=== PATIENT | male | born 1970 | race Caucasian/White ===

== ENCOUNTER 2024-11-27 12:05 | Inpatient (IN) ==
--- NOTE | 2024-11-27 12:16 | Emergency Department Note ---
Impression & Plan NSTEMI (non-ST elevated myocardial infarction), Chest pain at rest, Elevated troponin ED Provider Note NAME: PELON ACEVEDO AGE: 53 SEX: M : 1970 ARRIVES VIA: Walk-In INFORMANT: Patient, Friend at bedside ED PROVIDER(S): Jerry Steen MD CHIEF COMPLAINT: Chest pain MEDICAL DECISION MAKING: Patient presents due to concern for chest pains. No active chest pain currently. IV was established and blood work is obtained. Patient's blood work shows a normal white count H&H and platelet count. Kidney function is unremarkable. Patient's EKG does not show evidence of obvious ischemia. Troponin is greater than 200. Given the patient's prior symptoms and lack of active chest pain the patient was ordered aspirin and heparin drip. I did speak with the on-call hospitalist service and the patient was admitted to the medicine service. Patient was reassessed several times and the patient never developed any chest pain during my evaluations. Critical Care: I have personally spent 47 minutes of critical care time in direct management of this patient. This includes bedside care, interpretation of diagnostic studies, and testing, discussion with consultants, patient, and family members, and other require inpatient management activities. This 47 minutes is in excess of all separately billable procedures. Discussion w/ other healthcare providers: Dr. Shannon Young hospitalist service Prior /Outside records reviewed: none Differential diagnosis: Cardiac ischemia, aortic dissection, pulmonary embolism, pneumothorax, pneumonia, pericarditis, myocarditis, GERD, cholecystitis, pancreatitis, musculoskeletal, as well as other pathologies were considered. Diagnostics, as interpreted by me: ECG: Sinus tachycardia, rate of 129, normal intervals, normal axis no obvious STEMI. Cardiac monitoring: An order was placed for continuous cardiac monitoring. The monitor shows a rate of 105 with sinus rhythm. Patient was placed on pulse oximetry Medical decision rules: Heart score Imaging studies: I informally interpreted the patient's chest x-ray does not show obvious pneumonia or pneumothorax with formal report to follow. HPI: Patient presents due to concern for chest pains. The patient states that this occurred around 930 this morning lasted for a total duration of 1 hour. The patient states that this began happening while drinking coffee this morning. The patient was at rest. Patient states that when he walked around it did not worsen his pain. Patient is felt as though centralized and sharp and did have bilateral shoulder pain. Patient did feel little clammy. Mild nausea associated. No vomiting. Patient denies any prior history of heart or lung disease. Patient reports that he has no significant family history and siblings or parents with heart attack or stroke before the age 65. No cough or fever. Patient denies any leg swelling or calf pain. No recent surgeries procedures or hospitalizations and no recent long car plane travel. Patient did initially think that this was indigestion but felt worse. The patient did take some Tums and had improvement in symptoms. Patient states that he is chest pain-free currently. PAST MEDICAL HISTORY: See Below PAST SURGICAL HISTORY: See Below SOCIAL HISTORY: See Below HOME MEDICATIONS: See Below ALLERGIES: See Below VITALS: See Below PHYSICAL EXAMINATION: GENERAL: NAD, non-toxic. EYE EXAM: Normal conjunctiva. PERRL, no anisocoria and EOM's grossly intact w/o pain. OROPHARYNX: Moist mucus membranes, grossly normal dentition. NECK: Trachea midline, no stridor. Supple, no nuchal rigidity, no adenopathy, non-tender. No signs of meningismus. FROM of the neck with good chin to chest and neck extension. LUNGS: Clear to auscultation. Normal chest wall mechanics. HEART: Tachycardic and regular, no MRG. ABDOMEN: Abdomen soft, non-tender, no masses, no rebound or guarding. BACK: No CVA TTP. SKIN: No rashes and no bruising. UPPER EXTREMITIES: Upper extremities are grossly normal. LOWER EXTREMITIES: Grossly normal, no edema. Negative Homans' sign bilaterally. NEURO EXAM: A&O x3, cranial nerves II-XII grossly intact, normal speech, moves all 4 extremities. 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 Beliefs That Will Affect Care: None Current Living Situation: Alone Other Information That Helps Us Care for You: No Feels Safe at Home: Yes Safety Concerns: Feels Safe At This Time Assistive Devices: None Allergies Allergies Allergy/AdvReac Type Severity Reaction Status Date / Time No Known Allergies Allergy Unverified 11/27/24 13:21 Home Meds Home Medications Medication Instructions Recorded Confirmed No Known Home Medications 11/27/24 11/27/24 Results & Data (ED) Vital Signs Vital Signs - 24 hr 11/27/24 12:10 Temperature 36.7 C Temperature Source Temporal Artery Scan Pulse Rate 117 H Pulse Strength Normal Respiratory Rate 19 Respiratory Effort / Characteristics Non-Labored Spontaneous Respiratory Depth Normal Respiratory Pattern Regular Blood Pressure 150/104 H Blood Pressure Mean 119 Blood Pressure Position Sitting Pulse Oximetry 97 Oxygen Delivery Method Room Air Sepsis Recent Fever Within 48 Hours No Sepsis New/Unexplained Change in Mental Status No Sepsis Action Taken by Nursing No Action Required Home Medications Current Medication List: was personally reviewed by me Laboratory Data Attestation: I reviewed the patient's lab results. 11/29/24 05:59 11/29/24 05:59 Lab Results 11/27/24 11/27/24 Range/Units 12:17 14:08 WBC 8.71 (4.8-10.8) K/ul RBC 5.13 (4.70-6.10) M/uL Hgb 15.8 (14.0-18.0) g/dl Hct 45.7 (42.0-52.0) % MCV 89.1 (80.0-100.0) fL MCH 30.8 (25.0-34.0) pg MCHC 34.6 (32.0-36.0) g/dL RDW Std Deviation 38.4 (36.4-46.3) fL RDW Coeff of Mitesh 11.8 (11.5-14.5) % Plt Count 229 (130-400) K/uL MPV 11.1 (9.4-12.4) fL Immature Gran % (Auto) 0.2 % Neut % (Auto) 79.8 % Lymph % (Auto) 13.7 % Burnett % (Auto) 5.3 % Eos % (Auto) 0.5 % Baso % (Auto) 0.5 % Neut # (Auto) 6.96 H (1.40-6.50) K/uL Lymph # (Auto) 1.19 L (1.20-3.40) K/uL Burnett # (Auto) 0.46 (0.11-0.59) K/uL Eos # (Auto) 0.04 (0.00-0.50) K/uL Baso # (Auto) 0.04 (0.00-0.20) K/uL Immature Gran # (Auto) 0.02 (0.01-0.20) K/uL PT 10.5 (9.0-12.0) Seconds INR 1.0 (0.9-1.1) APTT 27 (21-31) Seconds PTT Ratio 1.0 Heparin Anti-Xa, Unfract < 0.10 L (0.3-0.7) IU/ml Sodium 139 (136-145) mmol/L Potassium 3.6 (3.5-5.1) mmol/L Chloride 103 (98-107) mmol/L Carbon Dioxide 29 (21-32) mmol/L Anion Gap 7 (3-11) BUN 14 (6-23) mg/dl Creatinine 1.09 (0.6-1.4) mg/dl Est Cr Clr Drug Dosing 76.6 ml/min eGFR 80.15 BUN/Creatinine Ratio 12.8 (10-20) Glucose 147 H (70-99(Fasting)) mg/dl Calcium 9.8 (8.6-10.3) mg/dl Total Bilirubin 0.9 (0.2-1.0) mg/dl AST 19 (13-39) U/L ALT 23 (7-52) U/L Alkaline Phosphatase 53 (34-104) U/L Troponin I High Sens 240.1 H* 607.8 H* D (0-20) pg/ml Total Protein 7.7 (6.0-8.3) gm/dl Albumin 4.6 (3.4-5.0) gm/dl Globulin 3.1 (2.5-4.0) gm/dl Albumin/Globulin Ratio 1.5 (0.9-2) Lipase 30 (11-82) U/L TSH 1.036 (0.300-4.500) uIu/ml Administered Medications Aspirin (Aspirin 81 Mg Ectab) 81 mg PO [facility] Stop: 12/28/24 08:59 Last Admin: 11/29/24 07:11 Dose: 81 mg Documented By: Admin: 11/28/24 07:31 Dose: 81 mg Documented By: K Atorvastatin Calcium (Atorvastatin 40 Mg Tab) 40 mg PO QPM [facility] Stop: 12/27/24 20:59 Last Admin: 11/28/24 20:53 Dose: 40 mg Documented By: Admin: 11/27/24 20:46 Dose: 40 mg Documented By: KF Heparin Sodium/Dextrose (Heparin 53266 Unit/500 Ml D5w) 25,000 units in 500 mls @ 0 mls/hr IV .Q0M ANKUR; Protocol Stop: 12/27/24 13:29 Last Titration: 11/29/24 07:00 Dose: 0 units/hr, 0 mls/hr Documented By: FRANCINE Co-signed By: RIMMA Admin: 11/29/24 00:23 Dose: 1,050 units/hr, 21 mls/hr Documented By: SONALI Co-signed By: ESG Titration: 11/29/24 00:23 Dose: Infused Documented By: KF Co-signed By: ESG Titration: 11/28/24 17:25 Dose: 1,050 units/hr, 21 mls/hr Documented By: WMK Co-signed By: DL Titration: 11/28/24 08:00 Dose: 0 units/hr, 0 mls/hr Documented By: WMPavan Co-signed By: DL Titration: 11/28/24 07:04 Dose: 1,050 units/hr, 21 mls/hr Documented By: WMPavan Co-signed By: DL Titration: 11/27/24 22:44 Dose: 1,050 units/hr, 21 mls/hr Documented By: KF Co-signed By: LUZ Admin: 11/27/24 13:56 Dose: 900 units/hr, 18 mls/hr Documented By: SRL Co-signed By: CEF Losartan Potassium (Losartan Potassium 25 Mg Tab) 25 mg PO [facility] Stop: 12/28/24 08:59 Last Admin: 11/29/24 07:11 Dose: 25 mg Documented By: Admin: 11/28/24 12:00 Dose: 25 mg Documented By: FRANCINE Metoprolol Succinate (Metoprolol Succ 25mg Ext Rel Tab) [facility] [place]: 12/27/24 16:59 Last Admin: 11/29/24 07:17 Dose: 25 mg Documented By: Admin: 11/28/24 07:31 Dose: 25 mg Documented By: Admin: 11/27/24 17:38 Dose: 25 mg Documented By: K Nitroglycerin (Nitroglycerin Sl 0.4 Mg/Tab Tab) 0.4 mg SL Q5M PRN PRN Reason: Chest Pain Stop: 12/27/24 14:29 Last Admin: 11/28/24 11:09 Dose: 0.4 mg Documented By: MAYAF Pantoprazole Sodium (Pantoprazole 40 Mg Tab) 40 mg PO DAILY [facility] Stop: 12/27/24 14:44 Last Admin: 11/29/24 07:11 Dose: 40 mg Documented By: Admin: 11/28/24 07:31 Dose: 40 mg Documented By: Admin: 11/27/24 16:41 Dose: 40 mg Documented By: FRANCINE Ticagrelor (Ticagrelor 90 Mg Tab) 90 mg PO BID [facility] Stop: 12/28/24 20:59 Last Admin: 11/29/24 07:13 Dose: 90 mg Documented By: Admin: 11/28/24 20:53 Dose: 90 mg Documented By: KF Discontinued Medications Aspirin (Aspirin Chew 324 Mg) 324 mg PO NOW STA Stop: 11/27/24 13:04 Last Admin: 11/27/24 13:12 Dose: 324 mg Documented By: SRJazmine Diphenhydramine HCl (Diphenhydramine 50 Mg/Ml Vial) Confirm Administered Dose 50 mg .ROUTE .STK-MED ONE Stop: 11/29/24 08:14 Last Admin: 11/29/24 09:00 Dose: 25 mg Documented By: SURAJ Fentanyl Citrate (Fentanyl Citrate Pf 100 Mcg/2 Ml Vial) Confirm Administered Dose 100 mcg .ROUTE .STK-MED ONE Stop: 11/28/24 08:38 Last Increment: 11/28/24 10:26 Dose: 25 mcg Documented By: POONAM Increment: 11/28/24 09:51 Dose: 75 mcg Documented By: POONAM Fentanyl Citrate (Fentanyl Citrate Pf 100 Mcg/2 Ml Vial) Confirm Administered Dose 100 mcg .ROUTE .STK-MED ONE Stop: 11/29/24 07:45 Last Increment: 11/29/24 09:00 Dose: 75 mcg Documented By: SURAJ Heparin Sodium (Porcine) (Heparin Sod (Porcine) 1000 Unit/Ml) 3,000 units IV NOW ONE Stop: 11/27/24 22:46 Last Admin: 11/27/24 22:40 Dose: 3,000 units Documented By: SONALI Co-signed By: LUZ Heparin Sodium (Porcine) (Heparin (Porcine) 1000 Unit/Ml 10 Ml (Bow Maker Custom Use Only)) Confirm Administered Dose 10,000 units .ROUTE .STK-MED ONE Stop: 11/28/24 08:37 Last Admin: 11/28/24 10:28 Dose: 7,000 units Documented By: POONAM Heparin Sodium (Porcine) (Heparin (Porcine) 1000 Unit/Ml 10 Ml (Bow Maker Custom Use Only)) Confirm Administered Dose 10,000 units .ROUTE .STK-MED ONE Stop: 11/29/24 07:44 Last Admin: 11/29/24 08:59 Dose: 6,500 units Documented By: SURAJ Heparin Sodium/Dextrose (Heparin Iv Adult Wt-Based Low-Dose *No* Initial Bolus Protocol) 1 each IV ONE STA; Protocol Stop: 11/27/24 13:04 Last Admin: 11/27/24 15:52 Dose: 1 each Documented By: FRANCINE Heparin Sodium/Sodium Chloride (Heparin In Nss Infusion 1000 Unit/500 Ml (2 U/Ml) Bag) Confirm Administered Dose 3,000 units IV .STK-MED ONE Stop: 11/28/24 08:38 Last Admin: 11/28/24 09:40 Dose: 3,000 units Documented By: MIRYAM Heparin Sodium/Sodium Chloride (Heparin In Nss Infusion 1000 Unit/500 Ml (2 U/Ml) Bag) Confirm Administered Dose 3,000 units IV .STK-MED ONE Stop: 11/29/24 07:45 Last Admin: 11/29/24 08:04 Dose: 3,000 units Documented By: SURAJ Sodium Chloride (Nss) 500 mls @ 999 mls/hr IV .Q31M ONE Stop: 11/27/24 12:58 Last Infusion: 11/27/24 13:08 Dose: Infused Documented By: Admin: 11/27/24 12:36 Dose: 999 mls/hr Documented By: DAVIN Sodium Chloride (Nss) 1,000 mls @ 80 mls/hr IV .[id number] ANKUR Stop: 11/28/24 14:44 Last Infusion: 11/28/24 17:25 Dose: Infused Documented By: Infusion: 11/28/24 14:44 Dose: 0 mls/hr Documented By: Infusion: 11/28/24 11:55 Dose: 80 mls/hr Documented By: Infusion: 11/28/24 08:00 Dose: 0 mls/hr Documented By: Admin: 11/28/24 05:05 Dose: 80 mls/hr Documented By: Infusion: 11/28/24 05:05 Dose: Infused Documented By: Admin: 11/27/24 15:52 Dose: 80 mls/hr Documented By: FRANCINE Ioversol (Optiray 350) Confirm Administered Dose 1 ml .ROUTE .STK-MED ONE Stop: 11/28/24 08:38 Last Admin: 11/28/24 10:38 Dose: 150 ml Documented By: SEBASTIAN Ioversol (Optiray 350) Confirm Administered Dose 1 ml .ROUTE .STK-MED ONE Stop: 11/29/24 07:46 Last Admin: 11/29/24 09:00 Dose: 150 ml Documented By: SEBASTIAN Lidocaine HCl (Lidocaine 1% Local 20 Ml Vial) Confirm Administered Dose 60 ml .ROUTE .STK-MED ONE Stop: 11/28/24 09:03 Last Admin: 11/28/24 09:52 Dose: 60 ml Documented By: MIRYAM Lidocaine HCl (Lidocaine 1% Local 20 Ml Vial) Confirm Administered Dose 1 ml .ROUTE .STK-MED ONE Stop: 11/29/24 08:05 Last Admin: 11/29/24 09:00 Dose: 1 ml Documented By: SURAJ Losartan Potassium (Losartan Potassium 25 Mg Tab) 25 mg PO ONE ONE Stop: 11/27/24 16:47 Last Admin: 11/27/24 17:38 Dose: 25 mg Documented By: FRANCINE Midazolam HCl (Midazolam Hcl 1 Mg/Ml 2ml Vial) Confirm Administered Dose 2 mg .ROUTE .STK-MED ONE Stop: 11/28/24 08:37 Last Admin: 11/28/24 09:39 Dose: 2 mg Documented By: POONAM Midazolam HCl (Midazolam Hcl 1 Mg/Ml 2ml Vial) Confirm Administered Dose 2 mg .ROUTE .STK-MED ONE Stop: 11/28/24 09:47 Last Admin: 11/28/24 10:27 Dose: 2 mg Documented By: POONAM Midazolam HCl (Midazolam Hcl 1 Mg/Ml 2ml Vial) Confirm Administered Dose 2 mg .ROUTE .STK-MED ONE Stop: 11/29/24 07:44 Last Admin: 11/29/24 09:00 Dose: 2 mg Documented By: SURAJ Midazolam HCl (Midazolam Hcl 1 Mg/Ml 2ml Vial) Confirm Administered Dose 2 mg .ROUTE .STK-MED ONE Stop: 11/29/24 08:14 Last Increment: 11/29/24 09:01 Dose: 1 mg Documented By: SURAJ Nicardipine HCl (Nicardipine 2,000 Mcg/20 Ml Syr) Confirm Administered Dose 2,000 mcg .ROUTE .STK-MED ONE Stop: 11/28/24 08:38 Last Admin: 11/28/24 09:40 Dose: 2,000 mcg Documented By: MIRYAM Nicardipine HCl (Nicardipine 2,000 Mcg/20 Ml Syr) Confirm Administered Dose 2,000 mcg .ROUTE .STK-MED ONE Stop: 11/29/24 07:45 Last Admin: 11/29/24 08:04 Dose: 2,000 mcg Documented By: SEBASTIAN Nitroglycerin/Dextrose (Nitroglycerin/D5w 100mcg/Ml 20ml Syr) Confirm Administered Dose 2,000 mcg .ROUTE .STK-MED ONE Stop: 11/28/24 08:38 Last Admin: 11/28/24 09:43 Dose: 2,000 mcg Documented By: MIRYAM Nitroglycerin/Dextrose (Nitroglycerin/D5w 100mcg/Ml 20ml Syr) Confirm Administered Dose 2,000 mcg .ROUTE .STK-MED ONE Stop: 11/29/24 07:46 Last Admin: 11/29/24 08:06 Dose: 2,000 mcg Documented By: SEBASTIAN Ticagrelor (Ticagrelor 90 Mg Tab) Confirm Administered Dose 180 mg .ROUTE .STK- MED ONE Stop: 11/28/24 10:36 Last Admin: 11/28/24 10:38 Dose: 180 mg Documented By: POONAM Imaging Data Radiologist's Impression: Chest X-Ray 11/27/24 12:28 XR chest 1V portable HISTORY: 53 years-old Male Chest pain, nonspecific COMPARISON: None TECHNIQUE: AP view of the chest FINDINGS: Cardiomediastinal and hilar silhouettes are within normal limits. No pneumothorax, pleural effusion, airspace consolidation or pulmonary edema. Bones appear grossly intact. IMPRESSION: No acute process. ACT 112: Negative or not required by law. The above report was generated using voice recognition software. It may contain grammatical, syntax or spelling errors. Electronically signed by: Dov Benson M.D. 11/27/2024 1:08 PM Discharge Plan Visit Data Chief Complaint: Chest Pain Stated Complaint: CHEST PAIN ED Provider: Jerry Steen Discharge Problem: NSTEMI (non-ST elevated myocardial infarction), Chest pain at rest, Elevated troponin Patient Disposition: Admitted As Inpatient Discharge Instructions Interventions: ED Discharge Assessment Last Done: 11/27/24 15:23
[2024-11-27] MEDS: SODIUM CHLORIDE 0.9% 500 ML IV ONE (12:36)
[2024-11-27 12:42] LABS: Basophils # (auto) 0.04 K/uL (0.00-0.20); Basophils % (auto) 0.5 %; Eosinophils # (auto) 0.04 K/uL (0.00-0.50); Eosinophils % (auto) 0.5 %; Hematocrit (blood only) 45.7 % (42.0-52.0); Hemoglobin 15.8 g/dl (14.0-18.0); Immature Granulocytes # (auto) 0.02 K/uL (0.01-0.20); Immature Granulocytes % (auto) 0.2 %; Lymphocytes # (auto) 1.19 K/uL (1.20-3.40); Lymphocytes % (auto) 13.7 %; Mean Corpuscular Hemoglobin 30.8 pg (25.0-34.0); Mean Corpuscular Hgb Conc 34.6 g/dL (32.0-36.0); Mean Corpuscular Volume 89.1 fL (80.0-100.0); Mean Platelet Volume 11.1 fL (9.4-12.4); Monocytes # (auto) 0.46 K/uL (0.11-0.59); Monocytes % (auto) 5.3 %; Neutrophils # (auto) 6.96 K/uL (1.40-6.50); Neutrophils % (auto) 79.8 %; Platelet Count 229 K/uL (130-400); RDW Coefficient of Variation 11.8 % (11.5-14.5); RDW Standard Deviation 38.4 fL (36.4-46.3); Red Blood Count 5.13 M/uL (4.70-6.10); White Blood Count 8.71 K/ul (4.8-10.8)
[2024-11-27 12:51] LABS: Albumin Globulin Ratio 1.5 (0.9-2); Albumin Level 4.6 gm/dl (3.4-5.0); BUN Creatinine Ratio 12.8 (10-20); Bilirubin,Total 0.9 mg/dl (0.2-1.0); Calcium 9.8 mg/dl (8.6-10.3); Creatinine Clr Calc Pharmacy 76.6 ml/min; Globulin 3.1 gm/dl (2.5-4.0); Potassium 3.6 mmol/L (3.5-5.1); Total Protein 7.7 gm/dl (6.0-8.3)
[2024-11-27 13:04] LABS: Troponin I High Sensitivity 240.1 pg/ml (0-20)
[2024-11-27 13:06] LABS: Thyroid Stimulating Hormone 1.036 uIu/ml (0.300-4.500)
--- NOTE | 2024-11-27 13:09 | XRay Report ---
XR chest 1V portable HISTORY: 53 years-old Male Chest pain, nonspecific COMPARISON: None TECHNIQUE: AP view of the chest FINDINGS: Cardiomediastinal and hilar silhouettes are within normal limits. No pneumothorax, pleural effusion, airspace consolidation or pulmonary edema. Bones appear grossly intact. IMPRESSION: No acute process. ACT 112: Negative or not required by law. The above report was generated using voice recognition software. It may contain grammatical, syntax o r spelling errors. Electronically signed by: Dov Benson M.D. 11/27/2024 1:08 PM
[2024-11-27] MEDS: ASPIRIN CHEW 324 MG PO STA (13:12)
[2024-11-27] MEDS: HEPARIN 25000 UNIT/500 ML D5W 25,000 UNITS/500 ML BAG IV SCH (13:56)
[2024-11-27 14:12] LABS: ANTI-Xa, UFH(UnfractionatedHep < 0.10 IU/ml (0.3-0.7)
[2024-11-27 14:27] LABS: Partial Thromboplastin Time 27 Seconds (21-31); Prothrombin Time 10.5 Seconds (9.0-12.0)
[2024-11-27] MEDS ORDERED: ACETAMINOPHEN 325 MG TAB PO PRN (14:30)
--- NOTE | 2024-11-27 14:42 | History & Physical Report ---
Date of Service November 27, 2024 Assessment & Plan (1) NSTEMI (non-ST elevated myocardial infarction): Plan #Chest pain likely 2/2 NSTEMI, currently asymptomatic -heparin ggt -nitro for cp -stat EKG/repeat troponins for new/evolving chest pain -cardiology consult -aspirin -tele -trend trops to peak #GERD -PPI IVF, NPO for now Heparin ggt PPI History of Present Illness Primary Care Provider: NO PCP 53M PMH gerd presents to the ED with cp. Patient states that this AM he was drinking coffee, and then developed central, sharp chest pain radiating to both arms. He also felt clammy. This pain waxed and waned for about an hour, but resolved before arrival to the ED. Patient states he has had only one episode similar to this in the past, about 6 months ago, which was also non exertional and resembled this episode, though less severe. Other than these two episodes has never had chest pain like this. Of note, patient states that he does get GERD symptoms which present as chest pain that can be sharp, but are usually not as severe as these symptoms above, and also do not radiate or cause clamminess. Patient has strong family history of heart disease in all of his aunts and uncles. Never smoker, no drug use. Allergies Allergy/AdvReac Type Severity Reaction Status Date / Time No Known Allergies Allergy Unverified 11/27/24 13:21 Home Medications Medication Instructions Recorded Confirmed Type No Known Home Medications 11/27/24 11/27/24 History Past Med/Surg History Problem List (Updated 11/27/24 @ 14:35 by Win Ortega MD) NSTEMI (non-ST elevated myocardial infarction) Social History Smoking Status: Never smoker Preferred Language: Mozambican Feels Safe at Home: Yes Review of Systems Constitutional: + sweats; no fever and no weakness Respiratory: no dyspnea and no wheezing Cardiovascular: + chest pain, + chest pain at rest and + radiating jaw, neck or arm pain; no palpitations Physical Exam Constitutional: WD/WN, vitals as above Respiratory: normal respiratory effort, lungs clear to auscultation Cardiovascular: RRR, no murmur, no edema Results & Data Results & Data Vital Signs (Past 12 Hours) Vital Signs Temp Pulse Pulse Resp BP BP Pulse Ox 11/27/24 14:00 104 H 31 H 165/102 H 96 11/27/24 13:30 106 H 21 157/113 H 96 11/27/24 13:03 102 H 15 145/103 H 95 11/27/24 12:33 105 H 24 145/102 H 94 11/27/24 12:28 91 H 18 96 11/27/24 12:24 112 H 11/27/24 12:18 115 H 18 137/111 H 94 11/27/24 12:18 11/27/24 12:10 36.7 C 117 H 19 150/104 H 97 O2 Del Method 11/27/24 14:00 Room Air 11/27/24 13:30 Room Air 11/27/24 13:03 Room Air 11/27/24 12:33 Room Air 11/27/24 12:28 Room Air 11/27/24 12:24 11/27/24 12:18 11/27/24 12:18 Room Air 11/27/24 12:10 Room Air Laboratory Results Abnormal lab results 11/27/24 Range/Units 12:17 Neut # (Auto) 6.96 H (1.40-6.50) K/uL Lymph # (Auto) 1.19 L (1.20-3.40) K/uL Heparin Anti-Xa, Unfract < 0.10 L (0.3-0.7) IU/ml Glucose 147 H (70-99(Fasting)) mg/dl Troponin I High Sens 240.1 H* (0-20) pg/ml Diagnostic Findings Chest X-Ray 11/27/24 12:28 XR chest 1V portable HISTORY: 53 years-old Male Chest pain, nonspecific COMPARISON: None TECHNIQUE: AP view of the chest FINDINGS: Cardiomediastinal and hilar silhouettes are within normal limits. No pneumothorax, pleural effusion, airspace consolidation or pulmonary edema. Bones appear grossly intact. IMPRESSION: No acute process. ACT 112: Negative or not required by law. The above report was generated using voice recognition software. It may contain grammatical, syntax or spelling errors. Electronically signed by: Dov Benson M.D. 11/27/2024 1:08 PM
[2024-11-27] MEDS: Heparin IV Adult Wt-Based Low-Dose *NO* INITIAL Bolus Protocol IV STA (15:52)
[2024-11-27] MEDS: SODIUM CHLORIDE 0.9% 1,000 ML IV SCH (15:52)
[2024-11-27] MEDS ORDERED: CALCIUM CARBONATE 500 MG CHEWABLE TAB PO PRN (15:59)
--- NOTE | 2024-11-27 16:39 | Cardiology Consultation ---
<Statement entered by Tiffanie Schafer DO - 11/27/24 22:42> I have reviewed the advanced practitioner's documentation and agree with the plan of care. I accept the responsibility for the associated risk. pt seen in cardiology consultation due to NSTEMI Pt had sudden onset chest pain radiating to the arms that was waxing and weaning today and not getting better so he came to ER. Pt does not see a physician in sometime; he is not taking any medications; non-smoker; family history of CAD on maternal side. Pt ruled in for NSTEMI; BP is elevated and he is in ST Currently chest pain free IV heparin Echo tomorrow Cardiac Cath tomorrow; i discussed the procedure and potential risks which include but not limited to injury to blood vessels, cardiac chambers, cardiac valves, kidney damage from IV dye, strokes, heart attacks, arrhythmias, , bleeding and infection-he expressed an understanding and wished to proceed start ASA, statin, toprol and losartan Add nitro-paste monitor on telemetry Date of Consultation November 27, 2024 Assessment & Plan (1) NSTEMI (non-ST elevated myocardial infarction): (2) Chest pain at rest: (3) Elevated troponin: (4) Abnormal EKG: (5) Hypertension, uncontrolled: (6) Sinus tachycardia: Plan * Weight-based IV heparin, aspirin, statin, beta-korin, and ARB * Refer for resting echocardiography (ordered) * Trend troponin to peak * Check lipids. * Maintain telemetry * NPO after midnight for diagnostic cardiac catheterization in AM with Dr. Siddiqui History of Present Illness Reason for Consultation: NSTEMI Requesting Physician: Dr. Win Ortega Attending Physician: Dr. Roopa Torrez MD History of Present Illness Elvis Angeles is a 53-year-old male who presented to the [facility] ER for evaluation of chest discomfort on November 27, 2024. Patient desc ribes sudden onset resting anterior chest discomfort associated with mild diaphoresis, pain radiating down both arms starting this morning and lasting approximately 1 hour. Patient notes taking Tums with transient improvement though with return of discomfort when walking around the house. Patient describes having had a similar episode of discomfort approximately 6 months ago that he attributed to indigestion however this episode today was significantly worse. Patient has been chest pain-free since presentation. EKG revealed sinus tachycardia with diffuse STT wave abnormality. High-sensitivity troponin elevated 240.1 then 607.8 pg/mL. Chest x-ray without acute process. Past Medical and Surgical History: Reflux. Appendectomy 1987. Hernia surgery in 2004 Family History: Father with colon cancer at 75. Mother is alive and well. Six maternal aunts and uncles with heart trouble. Social History: Never smoker. Occasional alcohol. No illegal drug use. 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 Girlfriend. Allergies Allergy/AdvReac Type Severity Reaction Status Date / Time No Known Allergies Allergy Unverified 11/27/24 13:21 Home Medications Medication Instructions Recorded Confirmed Type No Known Home Medications 11/27/24 11/27/24 History Patient History Social History Smoking Status: Never smoker Hx Alcohol Use: Yes Alcohol type: beer Hx Substance Use: No Preferred Language: Estonian Communication Ability: Effective Registered Public Health Nurse Required: No Beliefs That Will Affect Care: None Current Living Situation: Alone Other Information That Helps Us Care for You: No Feels Safe at Home: Yes Safety Concerns: Feels Safe At This Time Assistive Devices: None Review of Systems Review of Systems: Complete Review of Systems: Constitutional: Chest cold circa one month ago. No current fevers. HEENT: No history of amaurosis fugax. Pulmonary: No history of asthma, emphysema, COPD, or PE. Cardiac: No prior cardiac history. GI/Abd: Reflux. No melana or hematochezia. No kidney problems. No liver problems. Vascular: No history of carotid artery disease, AAA, or lower extremity claudication/PAD. Hematologic: No coagulation disorder, anemia, or abnormal bleeding. Neurologic: No history of TIA/CVA, or seizure disorder. Male : Negative. Endocrine: No history of diabetes mellitus. No thyroid trouble. Complete Review of Systems is as stated above, negative, or noncontributory Physical Exam Physical Exam: General: A&Ox3. NAD. HENT: Normocephalic. Atraumatic. Eyes: PER. Conjunctiva pink, sclera clear. Neck: No carotid bruits. No JVD. No HJR. Heart: Regular at 110 bpm. No murmur. No rub. Lungs: Clear to auscultation. Abdomen: +BS. Soft. Nontender. No masses or organomegaly. Extremities: No clubbing, cyanosis, or edema. Limited neurological examination is without focal deficits. Pulses: radial=2/4, posterior tibial=2/4. Results & Data Vital Signs (Past 12 Hours) Vital Signs Temp Pulse Pulse Resp BP BP Pulse Ox 11/27/24 15:40 36.9 C 111 H 164/110 H 97 11/27/24 15:00 113 H 16 153/107 H 95 11/27/24 14:00 104 H 31 H 165/102 H 96 11/27/24 13:30 106 H 21 157/113 H 96 11/27/24 13:03 102 H 15 145/103 H 95 11/27/24 12:33 105 H 24 145/102 H 94 11/27/24 12:28 91 H 18 96 11/27/24 12:24 112 H 11/27/24 12:18 115 H 18 137/111 H 94 11/27/24 12:18 11/27/24 12:10 36.7 C 117 H 19 150/104 H 97 O2 Del Method 11/27/24 15:40 Room Air 11/27/24 15:00 Room Air 11/27/24 14:00 Room Air 11/27/24 13:30 Room Air 11/27/24 13:03 Room Air 11/27/24 12:33 Room Air 11/27/24 12:28 Room Air 11/27/24 12:24 11/27/24 12:18 11/27/24 12:18 Room Air 11/27/24 12:10 Room Air Laboratory Results Cardiac Enzymes 11/27/24 11/27/24 Range/Units 12:17 14:08 AST 19 (13-39) U/L Troponin I High Sens 240.1 H* 607.8 H* D (0-20) pg/ml Coagulation 11/27/24 Range/Units 12:17 PT 10.5 (9.0-12.0) Seconds APTT 27 (21-31) Seconds CBC 11/27/24 Range/Units 12:17 WBC 8.71 (4.8-10.8) K/ul RBC 5.13 (4.70-6.10) M/uL Hgb 15.8 (14.0-18.0) g/dl Hct 45.7 (42.0-52.0) % Plt Count 229 (130-400) K/uL Neut # (Auto) 6.96 H (1.40-6.50) K/uL Lymph # (Auto) 1.19 L (1.20-3.40) K/uL Oliver # (Auto) 0.46 (0.11-0.59) K/uL Eos # (Auto) 0.04 (0.00-0.50) K/uL Baso # (Auto) 0.04 (0.00-0.20) K/uL Comprehensive Metabolic Panel 11/27/24 Range/Units 12:17 Sodium 139 (136-145) mmol/L Potassium 3.6 (3.5-5.1) mmol/L Chloride 103 (98-107) mmol/L Carbon Dioxide 29 (21-32) mmol/L BUN 14 (6-23) mg/dl Creatinine 1.09 (0.6-1.4) mg/dl Glucose 147 H (70-99(Fasting)) mg/dl Calcium 9.8 (8.6-10.3) mg/dl AST 19 (13-39) U/L ALT 23 (7-52) U/L Alkaline Phosphatase 53 (34-104) U/L Total Protein 7.7 (6.0-8.3) gm/dl Albumin 4.6 (3.4-5.0) gm/dl Intake and Output 11/27/24 11/27/24 11/27/24 06:59 14:59 22:59 Intake Total 500 / 500 Balance 500 / 500 Intake: IV 500 / 500 Sodium Chloride 0.9% 500 ml @ 500 / 500 999 mls/hr IV .Q31M ONE Rx#: [id number] Other: Weight 77.3 kg 74.8 kg Weight Measurement Method Chair Scale Built in [facility] Patient Weight 11/28/24 06:59 Weight 74.8 kg
[2024-11-27] MEDS: PANTOprazole 40 MG TAB PO SCH (16:41)
[2024-11-27 17:09] LABS: Troponin I High Sensitivity 980.9 pg/ml (0-20)
[2024-11-27] MEDS: LOSARTAN POTASSIUM 25 MG TAB PO ONE (17:38)
[2024-11-27] MEDS: METOPROLOL SUCC 25MG EXT REL TAB PO SCH (17:38)
[2024-11-27] MEDS: ATORVASTATIN 40 MG TAB PO SCH (20:46)
[2024-11-27 22:11] LABS: ANTI-Xa, UFH(UnfractionatedHep 0.11 IU/ml (0.3-0.7)
[2024-11-27] MEDS: HEPARIN SOD (PORCINE) 1000 UNIT/ML IV ONE (22:40)
[2024-11-28 06:34] LABS: Hematocrit (blood only) 41.8 % (42.0-52.0); Hemoglobin 14.8 g/dl (14.0-18.0); Mean Corpuscular Hemoglobin 31.6 pg (25.0-34.0); Mean Corpuscular Hgb Conc 35.4 g/dL (32.0-36.0); Mean Corpuscular Volume 89.3 fL (80.0-100.0); Mean Platelet Volume 11.6 fL (9.4-12.4); Platelet Count 225 K/uL (130-400); RDW Standard Deviation 39.4 fL (36.4-46.3); Red Blood Count 4.68 M/uL (4.70-6.10); White Blood Count 9.42 K/ul (4.8-10.8)
[2024-11-28 06:46] LABS: Albumin Globulin Ratio 1.4 (0.9-2); Albumin Level 3.9 gm/dl (3.4-5.0); BUN Creatinine Ratio 11.5 (10-20); Calcium 8.5 mg/dl (8.6-10.3); Creatinine Clr Calc Pharmacy 72.4 ml/min; Globulin 2.7 gm/dl (2.5-4.0); Potassium 3.8 mmol/L (3.5-5.1); Total Protein 6.6 gm/dl (6.0-8.3)
[2024-11-28 06:58] LABS: ANTI-Xa, UFH(UnfractionatedHep 0.42 IU/ml (0.3-0.7)
[2024-11-28 07:02] LABS: Prothrombin Time 11.2 Seconds (9.0-12.0)
[2024-11-28] MEDS: ASPIRIN 81 MG ECTAB PO SCH (07:31)
--- NOTE | 2024-11-28 08:49 | Pre Anesthesia Assessment ---
Date of Service November 28, 2024 Pre Sedation Assessment Vital Signs Temp Pulse Pulse Resp BP BP Pulse Ox 11/28/24 08:05 97 H 155/105 H 95 11/28/24 07:17 36.6 C 94 H 19 150/96 H 94 11/28/24 03:27 37.0 C 101 H 18 122/68 98 11/27/24 23:38 36.8 C 80 16 140/62 98 11/27/24 20:06 37.1 C 109 H 18 130/95 98 11/27/24 17:15 111 H 11/27/24 15:40 36.9 C 111 H 164/110 H 97 11/27/24 15:00 113 H 16 153/107 H 95 11/27/24 14:00 104 H 31 H 165/102 H 96 11/27/24 13:30 106 H 21 157/113 H 96 11/27/24 13:03 102 H 15 145/103 H 95 11/27/24 12:33 105 H 24 145/102 H 94 11/27/24 12:28 91 H 18 96 11/27/24 12:24 112 H 11/27/24 12:18 115 H 18 137/111 H 94 11/27/24 12:18 11/27/24 12:10 36.7 C 117 H 19 150/104 H 97 O2 Del Method 11/28/24 08:05 Room Air 11/28/24 07:17 Room Air 11/28/24 03:27 Room Air 11/27/24 23:38 Room Air 11/27/24 20:06 Room Air 11/27/24 17:15 11/27/24 15:40 Room Air 11/27/24 15:00 Room Air 11/27/24 14:00 Room Air 11/27/24 13:30 Room Air 11/27/24 13:03 Room Air 11/27/24 12:33 Room Air 11/27/24 12:28 Room Air 11/27/24 12:24 11/27/24 12:18 11/27/24 12:18 Room Air 11/27/24 12:10 Room Air Cardiovascular RRR, no murmur, no edema Respiratory normal respiratory effort, lungs clear to auscultation Pre-Sedation Airway Assessment Smoking Status: Never smoker Short, Thick Neck: No Thyromental Distance: > or= 3.5 Finger Breadths Oral Cavity: + Chipped Teeth Mallampati Class: III ASA: ASA3 NPO Status Date of Last Intake of Fluids: 11/27/24 Time of Last Intake of Fluids: 17:00 Date of Last Intake of Solid Food: 11/27/24 Time of Last Intake of Solid Foods: 17:00 Procedure Planning Contraindications for Sedation: none Current Medications Reviewed: Yes Notes The planned sedation has been discussed with the patient. Informed Consent was obtained. I have identified the patient, determined the appropriateness of sedation and have assessed the patient immediately prior to the procedure. All medicine(s) and interventions are by my order.
--- NOTE | 2024-11-28 08:53 | Cardiology Progress Note ---
Date of Service November 28, 2024 Assessment & Plan (1) NSTEMI (non-ST elevated myocardial infarction): (2) Chest pain at rest: (3) Elevated troponin: (4) Abnormal EKG: (5) Hypertension, uncontrolled: (6) Sinus tachycardia: Plan * Risk, benefit, alternatives to cardiac catheterization reviewed. Patient agreeable to proceed. * Hold IV heparin. * Add losartan 25 mg daily to improve blood pressure control. * Aspirin, beta-korin, and statin added 11/27/2024. * Further recommendations pending result of cardiac catheterization. Admission and Anticipated Discharge Date Admission Date: November 27, 2024 Subjective 53-year-old male seen examined at the bedside. Presented to the emergency department with chest discomfort radiating down both arms. Symptoms transiently relieved with Tums however recurred in the afternoon. Prompted to come to the ER by his girlfriend. Elevated troponins noted. Preliminary review of bedside echocardiogram demonstrates preserved LV systolic function with mild apical hypokinesis. Currently pain-free. Blood pressure elevated, however, improved with medical therapy. Physical Exam ENMT: Mallampati Class: III Respiratory: normal respiratory effort, lungs clear to auscultation Cardiovascular: RRR, no murmur, no edema Results & Data Vital Signs (Past 12 Hours) Vital Signs Temp Pulse Resp BP Pulse Ox O2 Del Method 11/28/24 08:05 97 H 155/105 H 95 Room Air 11/28/24 07:17 36.6 C 94 H 19 150/96 H 94 Room Air 11/28/24 03:27 37.0 C 101 H 18 122/68 98 Room Air 11/27/24 23:38 36.8 C 80 16 140/62 98 Room Air
[2024-11-28] MEDS: MIDAZOLAM HCL 1 MG/ML 2ML VIAL ONE ×2 (09:39→10:27)
[2024-11-28] MEDS: niCARdipine 2,000 MCG/20 ML SYR ONE (09:40)
[2024-11-28] MEDS: NITROGLYCERIN/D5W 100MCG/ML 20ML SYR ONE (09:43)
[2024-11-28] MEDS: fentaNYL citrate PF 100 MCG/2 ML VIAL ONE (09:51)
[2024-11-28] MEDS: HEPARIN (PORCINE) 1000 UNIT/ML 10 ML (CATH LAB USE ONLY) ONE (09:51)
[2024-11-28] MEDS: LIDOCAINE 1% LOCAL 20 ML VIAL ONE (09:52)
--- NOTE | 2024-11-28 10:03 | Post Anesthesia Assessment ---
Date of Service November 28, 2024 Post Sedation Assessment Vital Signs Temp Pulse Pulse Resp BP Pulse Ox O2 Del Method 11/29/24 12:48 36.7 C 93 H 136/88 95 Room Air 11/29/24 11:49 83 149/94 H 95 Room Air 11/29/24 10:49 36.6 C 76 125/87 95 Room Air 11/29/24 10:19 36.4 C L 83 113/79 96 Room Air 11/29/24 09:45 72 11/29/24 09:45 36.3 C L 90 139/92 95 Room Air 11/29/24 09:24 88 17 133/88 97 Room Air 11/29/24 09:06 91 H 17 123/94 97 Room Air 11/29/24 07:35 100 H 18 153/112 H 95 Room Air 11/29/24 07:15 93 H 11/29/24 07:15 36.5 C 91 H 150/92 H 95 Room Air 11/29/24 03:40 36.7 C 72 18 151/93 H 95 Room Air 11/28/24 23:14 36.8 C 76 18 152/99 H 96 Room Air 11/28/24 20:46 36.9 C 85 18 156/95 H 95 Room Air 11/28/24 17:44 83 11/28/24 15:29 36.5 C 73 18 149/98 H 95 Room Air 11/28/24 14:30 84 144/89 H 97 Room Air 11/28/24 14:00 81 147/91 H 97 Room Air 11/28/24 13:45 80 135/91 96 Room Air 11/28/24 13:15 85 136/88 97 Room Air 11/28/24 13:00 78 143/92 H 96 Room Air Recovery Score Activity: Moves 4 extremities Respiration: Deep Breath/Cough Circulation: +/-20% PreAnes Value Consciousness: Arouseable (by name) Discharge Sedation Level of Care: Phase I Post Sedation Plan On clinical assessment, the patient appears to have tolerated the sedation without complications. Patient is recovering as anticipated. Patient will continue to be monitored by nursing and may be discharged when sedation discharge criteria are met per below protocol. Upon Completions of procedure up to 15 minutes continue every 5 minute vital signs and the P.A.R. score; then discharge to a Phase I or Fast Track to Phase II per the following guidelines: * Discharge Patient to appropriate Phase II area if PAR is 8 or greater or return to pre- procedure baseline. The post - procedure orders will be as directed. * If PAR score is less than 8 or not return to pre-procedure baseline then patient will follow Phase I monitoring till PAR is reached for Phase II. The Phase I may be done in procedure room or may call to secure a Phase I area. * If naloxone or flumazenil are used for reversal, hold in Phase I for continued monitoring from when last reversal dose was given for a minimum of 60 minutes or longer pending the nurse and/or physician discretion of patient condition before discharge to Phase II. Please call the Sedation Physician to re-evaluate and complete post-note for discharge to Phase II area. Do NOT discharge from procedure sedation or Phase 1 until post- sedation evaluation note is complete by procedure /sedation MD Sedation Discharge Instructions to be given to the patient at discharge to home.
--- NOTE | 2024-11-28 10:19 | Cardiac Catheterization ---
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 Start 0908. End 0955. Sedation monitor: Aristeo LEBRON Procedural Complication(s) None Disposition Patient remained in Returned Item Clerk for PCI I attest to the content of the Intraoperative Record and any orders documented therein. Any exceptions are noted below. ACC Data: Returned Item Clerk Cardiac Status Clinical evaluation leading to the procedure 53-year-old male admitted with non-STEMI. Echocardiogram demonstrating mild anteroapical hypokinesis, otherwise normal wall motion. Preserved LV systolic function. No significant valvular pathology. CAD Presenation: Non STEMI Anginal Classification: CCS IV Heart Failure: No Cardiogenic Shock within 24 Hours: No Cardiac Arrest within 24 Hours: No Imaging Studies Past 6 Months: No Stress Studies Past 6 Months: No STEMI OR Non-STEMI Symptom Onset Date: 11/27/24 Symptom Onset Time: 10:00 Thrombolytics: No Coronary Anatomy Dominant: Right Left Main (% Stenosis): Normal LAD (% Stenosis): Proximal (80%) D1 (% Stenosis): Normal D2 (% Stenosis): Ostial (30% at level of LAD stenosis) Circumflex (% Stenosis): Proximal (30%) and Mid (80%) OM1 (% Stenosis): Ostial (70% ) RCA (% Stenosis): Mid (80% followed by 40%) R PDA (% Stenosis): Normal R PL1 (% Stenosis): Normal R PL2 (% Stenosis): Normal Ramus (% Stenosis): Ostial (20%) Diagnostic Physicians Name: Dontae Siddiqui DO Closure Device Percutaneous Entry Location: Radial (Ultrasound guidance, Long glide sheath placed due to radial artery spasm.) Closure Device: Radial Band Recommendations: PCI without planned CABG Intraprocedure Events Significant Disection: No Perforation: No
[2024-11-28] MEDS: TICAGRELOR 90 MG TAB ONE (10:38)
[2024-11-28] MEDS: OPTIRAY 350 ONE (10:38)
--- NOTE | 2024-11-28 10:40 | Post Anesthesia Assessment ---
Date of Service November 28, 2024 Post Sedation Assessment Vital Signs Temp Pulse Pulse Resp BP BP Pulse Ox 11/28/24 08:05 97 H 155/105 H 95 11/28/24 07:30 83 11/28/24 07:17 36.6 C 94 H 19 150/96 H 94 11/28/24 03:27 37.0 C 101 H 18 122/68 98 11/27/24 23:38 36.8 C 80 16 140/62 98 11/27/24 20:06 37.1 C 109 H 18 130/95 98 11/27/24 17:15 111 H 11/27/24 15:40 36.9 C 111 H 164/110 H 97 11/27/24 15:00 113 H 16 153/107 H 95 11/27/24 14:00 104 H 31 H 165/102 H 96 11/27/24 13:30 106 H 21 157/113 H 96 11/27/24 13:03 102 H 15 145/103 H 95 11/27/24 12:33 105 H 24 145/102 H 94 11/27/24 12:28 91 H 18 96 11/27/24 12:24 112 H 11/27/24 12:18 115 H 18 137/111 H 94 11/27/24 12:18 11/27/24 12:10 36.7 C 117 H 19 150/104 H 97 O2 Del Method 11/28/24 08:05 Room Air 11/28/24 07:30 11/28/24 07:17 Room Air 11/28/24 03:27 Room Air 11/27/24 23:38 Room Air 11/27/24 20:06 Room Air 11/27/24 17:15 11/27/24 15:40 Room Air 11/27/24 15:00 Room Air 11/27/24 14:00 Room Air 11/27/24 13:30 Room Air 11/27/24 13:03 Room Air 11/27/24 12:33 Room Air 11/27/24 12:28 Room Air 11/27/24 12:24 11/27/24 12:18 11/27/24 12:18 Room Air 11/27/24 12:10 Room Air Recovery Score Activity: Moves 4 extremities Respiration: Deep Breath/Cough Circulation: +/-20% PreAnes Value Consciousness: Arouseable (by name) Discharge Sedation Level of Care: Fast Track Phase II Post Sedation Plan On clinical assessment, the patient appears to have tolerated the sedation without complications. Patient is recovering as anticipated. Patient will continue to be monitored by nursing and may be discharged when sedation discharge criteria are met per below protocol. Upon Completions of procedure up to 15 minutes continue every 5 minute vital signs and the P.A.R. score; then discharge to a Phase I or Fast Track to Phase II per the following guidelines: * Discharge Patient to appropriate Phase II area if PAR is 8 or greater or return to pre- procedure baseline. The post - procedure orders will be as directed. * If PAR score is less than 8 or not return to pre-procedure baseline then patient will follow Phase I monitoring till PAR is reached for Phase II. The Phase I may be done in procedure room or may call to secure a Phase I area. * If naloxone or flumazenil are used for reversal, hold in Phase I for continued monitoring from when last reversal dose was given for a minimum of 60 minutes or longer pending the nurse and/or physician discretion of patient condition before discharge to Phase II. Please call the Sedation Physician to re-evaluate and complete post-note for discharge to Phase II area. Do NOT discharge from procedure sedation or Phase 1 until post- sedation evaluation note is complete by procedure /sedation MD Sedation Discharge Instructions to be given to the patient at discharge to home. [facility] Procedure Codes (Charges) Indication for Procedure Indication for procedure: NSTEMI
[2024-11-28] MEDS: NITROGLYCERIN SL 0.4 MG/TAB TAB SL PRN (11:09)
[2024-11-28] MEDS: LOSARTAN POTASSIUM 25 MG TAB PO SCH (12:00)
[2024-11-28 13:20] LABS: ANTI-Xa, UFH(UnfractionatedHep 0.49 IU/ml (0.3-0.7)
--- NOTE | 2024-11-28 16:16 | Hospitalist Progress Note ---
Date of Service November 28, 2024 Assessment & Plan (1) NSTEMI (non-ST elevated myocardial infarction): Plan: Patient presented to the hospital with chest pain EKG on admission shows normal sinus rhythm; no significant ST or T wave changes Echocardiogram showed EF of 55 to 60% with mild apical hypokinesis Patient treated with IV heparin; underwent cardiac cath on November 28, 2024. He was found to have 80% proximal LAD, 80% mid left circumflex and mid RCA. He und erwent PCI of LAD; with subsequent plan for PCI of remaining vessel coming days. Continue on aspirin Brilinta, statin, losartan and metoprolol Continue potline monitor History of GERDcontinue on PPI Full code DVT prophylaxis heparin Time spent evaluating patient, direct bedside care, chart review, placing orders, interpretation of diagnostic studies, discussion with consultants, patient, and family members, as well as other required patient management activities is 50 minutes Please note the above document was generated using voice recognition software. It may contain grammatical, syntax or spelling errors. Any formal questions or concerns about the content, text or information contained within the body of this dictation should be directly addressed to the provider for clarification Admission and Anticipated Discharge Date Admission Date: November 27, 2024 Subjective Patient seen and examined at bedside He underwent cardiac cath earlier in the morning; he is currently comfortably lying in the bed without any distress No significant events overnight and he is saturating well on room air Review of Systems Review of Systems: All systems reviewed & are unremarkable except as noted in Subjective Physical Exam Physical Exam: Constitutional: Alert oriented x 3; not in distress. Respiratory: normal respiratory effort, lungs clear to auscultation, no wheeze, rales, rhonchi. Normal insp/exp effort, no accessory muscle use Cardiovascular: RRR, no murmur, no edema Vessels: no JVD or carotid bruit Chest: normal inspection of chest Abdomen: normal bowel sounds, soft, nontender, no hepatosplenomegaly Musculoskeletal: no cyanosis or clubbing, extremities motor strength 5/5 Skin: no rashes, warm and dry normal turgor Neurologic: PERRL, EOMI, accommodation nl, no face palsy, no dysarthria CN's II- XI intact bilaterally and moves all extremities Psychiatric: A+Ox3, euthymic affect Results & Data Results & Data Vital Signs (Past 12 Hours) Vital Signs Temp Pulse Pulse Resp BP Pulse Ox O2 Del Method 11/28/24 15:29 36.5 C 73 18 149/98 H 95 Room Air 11/28/24 14:30 84 144/89 H 97 Room Air 11/28/24 14:00 81 147/91 H 97 Room Air 11/28/24 13:45 80 135/91 96 Room Air 11/28/24 13:15 85 136/88 97 Room Air 11/28/24 13:00 78 143/92 H 96 Room Air 11/28/24 12:45 88 150/98 H 95 Room Air 11/28/24 12:30 83 140/88 96 Room Air 11/28/24 12:15 87 137/89 96 Room Air 11/28/24 12:00 36.6 C 75 131/88 95 Room Air 11/28/24 11:45 81 145/86 H 95 Room Air 11/28/24 11:30 36.4 C L 81 146/84 H 96 Room Air 11/28/24 11:17 92 H 18 137/97 97 Room Air 11/28/24 11:00 79 17 162/109 H 97 Room Air 11/28/24 10:42 78 18 155/104 H 96 Room Air 11/28/24 08:05 97 H 155/105 H 95 Room Air 11/28/24 07:30 83 11/28/24 07:17 36.6 C 94 H 19 150/96 H 94 Room Air
--- NOTE | 2024-11-28 16:20 | Cardiac Catheterization ---
ACC Data: [facility] Cardiac Status Clinical evaluation leading to the procedure CAD Presenation: Non STEMI Anginal Classification: CCS IV Coronary Anatomy Left Main (% Stenosis): Normal (See diagnostic report for coronary anatomy) Diagnostic Physicians Name: Zach Carrizales MD, PhD Closure Device Percutaneous Entry Location: Radial Closure Device: Radial Band Recommendations: PCI without planned CABG PCI Indication: PCI for high risk Non-TRINIDAD Lesion Segment Name: Proximal to mid LAD Culprit Artery: Yes Stenosis Prior to Rx (%): 80% calcified Chronic Total Occlusion: No Pre-Procedure SEMAJ Flow: 2 Previously Treated Lesion: No Lesion Complexity: High/C Lesion Length (mm): 18 Thrombus Present: No Bifurcation Lesion: Yes Guidewire Across Lesion: Yes Intraprocedure Events Significant Disection: No Perforation: No Cardiac Cath Procedure Full Procedure Date November 28, 2024 Pre-Procedure Diagnosis Pre-Procedure Diagnosis: Non STEMI AUC Score AUC Score: 9 Post-Procedure Diagnosis Post-Procedure Diagnosis: Successful PCI Procedure(s) Performed Procedure(s) Performed: Drug Eluting Stent and Procedure (Intracoronary lithotripsy) Vp Genetic Zach Carrizales MD, PhD Pick Pulling Machine Operator(s) 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 He had just completed diagnostic coronary angiography performed by Dr. Siddiqui. See diagnostic report for details. Patient had a long 6 Chinese radial artery glide sheath in place. ACT was checked and additional heparin was provided. This was repeated intermittently throughout the case to ensure adequate anticoagulation. 6 Chinese EBU 3.0 guide catheter was advanced over the J-wire and used to engage the left main coronary. A BMW dorsal guidewire was advanced through the guide catheter and then down the LAD and into the large diagonal branch where it was positioned distally. A second BMW universal guidewire was then advanced through the guide catheter, down the LAD, and positioned distally in the LAD. Predilatation of the LAD lesion was performed with a 2.5 x 12 mm sprinter balloon. Several inflations to 4 and 6 latoya were performed but we had significant "watermelon seed" affect on the balloon. It was therefore exchanged. A 2.5 x 15 mm trek balloon was advanced and positioned across the lesion where it was inflated to 10 latoya. Balloon was removed. A 2.5 x 12 mm shockwave intracoronary lithotripsy balloon was then advanced over the wire and positioned across the lesion. It was inflated to 6 latoya and 2 runs of lithotripsy were performed. The balloon was then removed. Diagonal guidewire was removed. A 2.75 x 22 mm [place] drug-eluting stent was advanced over the guidewire and positioned across the lesion spanning the proximal to mid LAD and covering the large diagonal branch. It was initially deployed at 12 latoya. A second inflation was then performed to 14 latoya. Stent balloon was then removed. Knotting Machine Operator angiography was performed. A 3.0 x 8 mm NC Zaid balloon was then advanced and positioned in the proximal portion of the stent. First inflation to 14 latyoa covered the proximal edge of the stent in the proximal portion of the stent. The balloon was deflated and advanced so that its distal edge landed just after the ostium of the diagonal. It was then inflated to 13 latoya. The balloon was deflated and removed. Guidewire was removed and final angiographic evaluation was performed in orthogonal views. Guide catheter was then removed. Patient was provided Brilinta 180 mg p.o. Had already received aspirin 81 mg daily. The radial artery sheath was then removed and hemostasis was obtained using the TR band. Patient was hemodynamically stable and asymptomatic. He was returned to the recovery area. This ended the case. PCI findings: Significant improvement of the calcified lesion after shockwave intracoronary lithotripsy There is 0% residual stenosis post PCI. The ostium of the diagonal has up to 50% stenosis. SEMAJ-3 flow post PCI in both the diagonal and the LAD. No evidence of dissection or perforation post PCI Summary: 1. Successful complex PCI of the proximal to mid LAD using intracoronary lithotripsy followed by implantation of a single drug-eluting stent. 2. Dual antiplatelet therapy with aspirin and Brilinta to complete 1 to 2 years therapy. 3. Guideline directed medical therapy for secondary prevention of coronary disease per primary carpenter/labor 4. Planned staged PCI of the circumflex and RCA in the near future. Hemodynamics Rest Ao:: 117/78 mmHg Final Ao: 161/103 mmHg LV: Not performed Recommendations Recommendations: PCI without planned CABG Specimens Specimens: None Radiation Exposure (mGy) 2507 mGy, fluoroscopy time 21.5 minutes (combined cases) Contrast (mls) 155 cc Fluids (cc crystalloids) Fluids (cc crystalloids): 0cc Drains Drains: N/A Anesthesia 1 mg Versed, 25 mcg fentanyl IV. Start time 10:00, end time 1033 Procedural Complication(s) None Disposition [facility] [employer]/Recovery I attest to the content of the Intraoperative Record and any orders documented therein. Any exceptions are noted below. [facility] Card Cath Procedure Codes Moderate Sedation Procedure 1: Sedation/Anesthesia: 21313 Mod Sedation by a different physician ;Init15 Min Child Age 5&Up (Initial 15 min, ingot car operator. Start time 10:00) Procedure 2: Sedation/Anesthesia: 24597 Mod Sedation by a different physician;Ea Additional 15 Minutes (Additional 18 minutes, ingot car operator, end time 1033) Angioplasty Procedure 1: Cardiovascular Angioplasty Procedures: 86268 Perq Trluml Coronry Lithotrp (LAD) Stenting Procedure 1: Cardiovascular Stent Procedures: 23969 Perc transluminal revascularization of acute sub/total occl, aMI (LAD) PG Care Time/CCT Total # of Minutes Spent Total Time Spent with Patient: Total time spent is greater than 50% in coordination of care (as documented) at patient's floor/unit and/or counseling patient:
[2024-11-28] MEDS: TICAGRELOR 90 MG TAB PO SCH (20:53)
[2024-11-28] MEDS ORDERED: HEPARIN SOD 5,000 UNIT/0.5 ML VIAL SQ SCH (22:00)
[2024-11-29 06:22] LABS: Basophils # (auto) 0.03 K/uL (0.00-0.20); Basophils % (auto) 0.3 %; Eosinophils # (auto) 0.14 K/uL (0.00-0.50); Eosinophils % (auto) 1.4 %; Hematocrit (blood only) 46.5 % (42.0-52.0); Hemoglobin 16.4 g/dl (14.0-18.0); Immature Granulocytes # (auto) 0.03 K/uL (0.01-0.20); Immature Granulocytes % (auto) 0.3 %; Lymphocytes # (auto) 1.65 K/uL (1.20-3.40); Mean Corpuscular Hemoglobin 31.4 pg (25.0-34.0); Mean Corpuscular Hgb Conc 35.3 g/dL (32.0-36.0); Mean Corpuscular Volume 89.1 fL (80.0-100.0); Mean Platelet Volume 11.2 fL (9.4-12.4); Monocytes # (auto) 0.67 K/uL (0.11-0.59); Monocytes % (auto) 6.9 %; Neutrophils # (auto) 7.17 K/uL (1.40-6.50); Neutrophils % (auto) 74.1 %; Platelet Count 220 K/uL (130-400); RDW Coefficient of Variation 11.9 % (11.5-14.5); RDW Standard Deviation 38.7 fL (36.4-46.3); Red Blood Count 5.22 M/uL (4.70-6.10); White Blood Count 9.69 K/ul (4.8-10.8)
[2024-11-29 06:31] LABS: BUN Creatinine Ratio 12.9 (10-20); Calcium 9.1 mg/dl (8.6-10.3); Creatinine Clr Calc Pharmacy 74.6 ml/min; Magnesium 2.1 mg/dl (1.7-2.4)
[2024-11-29 07:21] LABS: ANTI-Xa, UFH(UnfractionatedHep 0.37 IU/ml (0.3-0.7)
--- NOTE | 2024-11-29 07:50 | Pre Anesthesia Assessment ---
Date of Service November 29, 2024 Pre Sedation Assessment Vital Signs Temp Pulse Pulse Resp BP Pulse Ox O2 Del Method 11/29/24 07:35 100 H 18 153/112 H 95 Room Air 11/29/24 07:15 93 H 11/29/24 07:15 36.5 C 91 H 150/92 H 95 Room Air 11/29/24 03:40 36.7 C 72 18 151/93 H 95 Room Air 11/28/24 23:14 36.8 C 76 18 152/99 H 96 Room Air 11/28/24 20:46 36.9 C 85 18 156/95 H 95 Room Air 11/28/24 17:44 83 11/28/24 15:29 36.5 C 73 18 149/98 H 95 Room Air 11/28/24 14:30 84 144/89 H 97 Room Air 11/28/24 14:00 81 147/91 H 97 Room Air 11/28/24 13:45 80 135/91 96 Room Air 11/28/24 13:15 85 136/88 97 Room Air 11/28/24 13:00 78 143/92 H 96 Room Air 11/28/24 12:45 88 150/98 H 95 Room Air 11/28/24 12:30 83 140/88 96 Room Air 11/28/24 12:15 87 137/89 96 Room Air 11/28/24 12:00 36.6 C 75 131/88 95 Room Air 11/28/24 11:45 81 145/86 H 95 Room Air 11/28/24 11:40 81 11/28/24 11:30 36.4 C L 81 146/84 H 96 Room Air 11/28/24 11:17 92 H 18 137/97 97 Room Air 11/28/24 11:00 79 17 162/109 H 97 Room Air 11/28/24 10:42 78 18 155/104 H 96 Room Air 11/28/24 08:05 97 H 155/105 H 95 Room Air Cardiovascular RRR, no murmur, no edema Respiratory normal respiratory effort, lungs clear to auscultation Pre-Sedation Airway Assessment Smoking Status: Never smoker Hx Sleep Apnea: No Short, Thick Neck: No Thyromental Distance: > or= 3.5 Finger Breadths Oral Cavity: + Chipped Teeth and + WNL Mallampati Class: III ASA: ASA3 NPO Status Date of Last Intake of Fluids: 11/28/24 Time of Last Intake of Fluids: 18:30 Date of Last Intake of Solid Food: 11/28/24 Time of Last Intake of Solid Foods: 18:30 Notes The planned sedation has been discussed with the patient. Informed Consent was obtained. I have identified the patient, determined the appropriateness of sedation and have assessed the patient immediately prior to the procedure. All medicine(s) and interventions are by my order.
[2024-11-29] MEDS: niCARdipine 2,000 MCG/20 ML SYR ONE (08:04)
[2024-11-29] MEDS: NITROGLYCERIN/D5W 100MCG/ML 20ML SYR ONE (08:06)
[2024-11-29] MEDS: HEPARIN (PORCINE) 1000 UNIT/ML 10 ML (CATH LAB USE ONLY) ONE (08:59)
[2024-11-29] MEDS: diphenhydrAMINE 50 MG/ML VIAL ONE (09:00)
[2024-11-29] MEDS: fentaNYL citrate PF 100 MCG/2 ML VIAL ONE (09:00)
[2024-11-29] MEDS: LIDOCAINE 1% LOCAL 20 ML VIAL ONE (09:00)
[2024-11-29] MEDS: OPTIRAY 350 ONE (09:00)
[2024-11-29] MEDS: MIDAZOLAM HCL 1 MG/ML 2ML VIAL ONE ×2 (09:00→09:01)
--- NOTE | 2024-11-29 09:04 | Post Anesthesia Assessment ---
Date of Service November 29, 2024 Post Sedation Assessment Vital Signs Temp Pulse Pulse Resp BP Pulse Ox O2 Del Method 11/29/24 07:35 100 H 18 153/112 H 95 Room Air 11/29/24 07:15 93 H 11/29/24 07:15 36.5 C 91 H 150/92 H 95 Room Air 11/29/24 03:40 36.7 C 72 18 151/93 H 95 Room Air 11/28/24 23:14 36.8 C 76 18 152/99 H 96 Room Air 11/28/24 20:46 36.9 C 85 18 156/95 H 95 Room Air 11/28/24 17:44 83 11/28/24 15:29 36.5 C 73 18 149/98 H 95 Room Air 11/28/24 14:30 84 144/89 H 97 Room Air 11/28/24 14:00 81 147/91 H 97 Room Air 11/28/24 13:45 80 135/91 96 Room Air 11/28/24 13:15 85 136/88 97 Room Air 11/28/24 13:00 78 143/92 H 96 Room Air 11/28/24 12:45 88 150/98 H 95 Room Air 11/28/24 12:30 83 140/88 96 Room Air 11/28/24 12:15 87 137/89 96 Room Air 11/28/24 12:00 36.6 C 75 131/88 95 Room Air 11/28/24 11:45 81 145/86 H 95 Room Air 11/28/24 11:40 81 11/28/24 11:30 36.4 C L 81 146/84 H 96 Room Air 11/28/24 11:17 92 H 18 137/97 97 Room Air 11/28/24 11:00 79 17 162/109 H 97 Room Air 11/28/24 10:42 78 18 155/104 H 96 Room Air Recovery Score Activity: Moves 4 extremities Respiration: Deep Breath/Cough Circulation: +/-20% PreAnes Value Consciousness: Fully Awake Oxygen Saturation: > 92% On Room Air Post Anesthesia Score: 10 Discharge Sedation Level of Care: Fast Track Phase II Post Sedation Plan On clinical assessment, the patient appears to have tolerated the sedation without complications. Patient is recovering as anticipated. Patient will continue to be monitored by nursing and may be discharged when sedation discharge criteria are met per below protocol. Upon Completions of procedure up to 15 minutes continue every 5 minute vital signs and the P.A.R. score; then discharge to a Phase I or Fast Track to Phase II per the following guidelines: * Discharge Patient to appropriate Phase II area if PAR is 8 or greater or return to pre- procedure baseline. The post - procedure orders will be as directed. * If PAR score is less than 8 or not return to pre-procedure baseline then patient will follow Phase I monitoring till PAR is reached for Phase II. The Phase I may be done in procedure room or may call to secure a Phase I area. * If naloxone or flumazenil are used for reversal, hold in Phase I for continued monitoring from when last reversal dose was given for a minimum of 60 minutes or longer pending the nurse and/or physician discretion of patient condition before discharge to Phase II. Please call the Sedation Physician to re-evaluate and complete post-note for discharge to Phase II area. Do NOT discharge from procedure sedation or Phase 1 until post- sedation evaluation note is complete by procedure /sedation MD Sedation Discharge Instructions to be given to the patient at discharge to home. [facility] Procedure Codes (Charges) Indication for Procedure Indication for procedure: Staged PCI Non-ST elevation TN Sedation/Anesthesia Procedure 1: Sedation/Anesthesia: 01757 Mod Sedation by the same physician;Init15 Min Child Age 5 & Up (Initial 15 minutes, start time 0813) Total Sedation Time (minutes): 45 Procedure 2: Sedation/Anesthesia: 38840 Mod Sedation by the same physician; Ea Ad [id number] Minutes (Additional 30 minutes, end time 0858) Total Sedation Time (minutes): 45
[2024-11-29 09:09] VITALS: RESP 17
--- NOTE | 2024-11-29 09:35 | Hospitalist Progress Note ---
Date of Service November 29, 2024 Assessment & Plan (1) NSTEMI (non-ST elevated myocardial infarction): Plan: Patient presented to the hospital with chest pain EKG on admission shows normal sinus rhythm; no significant ST or T wave changes Echocardiogram showed EF of 55 to 60% with mild apical hypokinesis Patient treated with IV heparin; underwent cardiac cath on November 28, 2024. He was found to have 80% proximal LAD, 80% mid left circumflex and mid RCA. He und erwent PCI of of proximal to mid LAD on November 28, 2024; with subsequent plan for PCI of remaining vessel coming days. Continue on aspirin Brilinta, statin, losartan and metoprolol Continue monitor worker History of GERDcontinue on PPI Full code DVT prophylaxis heparin Time spent evaluating patient, direct bedside care, chart review, placing orders, interpretation of diagnostic studies, discussion with consultants, patient, and family members, as well as other required patient management activities is 50 minutes Please note the above document was generated using voice recognition software. It may contain grammatical, syntax or spelling errors. Any formal questions or concerns about the content, text or information contained within the body of this dictation should be directly addressed to the provider for clarification Admission and Anticipated Discharge Date Admission Date: November 27, 2024 Subjective Patient seen and examined at bedside. He is comfortable; not in distress Overnight, he had 2 episode of NSVT. Review of Systems Review of Systems: All systems reviewed & are unremarkable except as noted in Subjective Physical Exam Physical Exam: Constitutional: Alert oriented x 3; not in distress. Respiratory: normal respiratory effort, lungs clear to auscultation, no wheeze, rales, rhonchi. Normal insp/exp effort, no accessory muscle use Cardiovascular: RRR, no murmur, no edema Vessels: no JVD or carotid bruit Chest: normal inspection of chest Abdomen: normal bowel sounds, soft, nontender, no hepatosplenomegaly Musculoskeletal: no cyanosis or clubbing, extremities motor strength 5/5 Skin: no rashes, warm and dry normal turgor Neurologic: PERRL, EOMI, accommodation nl, no face palsy, no dysarthria CN's II- XI intact bilaterally and moves all extremities Psychiatric: A+Ox3, euthymic affect Results & Data Results & Data Vital Signs (Past 12 Hours) Vital Signs Temp Pulse Pulse Resp BP Pulse Ox O2 Del Method 03/04/25 09:24 88 17 133/88 97 Room Air 11/29/24 09:06 91 H 17 123/94 97 Room Air 11/29/24 07:35 100 H 18 153/112 H 95 Room Air 11/29/24 07:15 93 H 11/29/24 07:15 36.5 C 91 H 150/92 H 95 Room Air 11/29/24 03:40 36.7 C 72 18 151/93 H 95 Room Air 11/28/24 23:14 36.8 C 76 18 152/99 H 96 Room Air
[2024-11-29 09:53] VITALS: O2SAT 95
--- NOTE | 2024-11-29 12:59 | Cardiology Progress Note ---
Date of Service November 29, 2024 Assessment & Plan (1) NSTEMI (non-ST elevated myocardial infarction): (2) Hypertension, uncontrolled: (3) Sinus tachycardia: (4) Presence of stent in LAD coronary artery: Plan 53 male status post multivessel PCI including stenting of the LAD, left circumflex, and right coronary artery. Reviewed importance of continuing dual antiplatelet therapy for minimum of 1 year uninterrupted post percutaneous intervention. Patient voiced understanding. Continue Toprol-XL, atorvastatin, and losartan as ordered. Post-cardiac catheterization activity restrictions noted below. Outpatient cardiology follow-up in 2 to 4 weeks. ACTIVITY RECOMMENDATIONS: It is common to feel weak and fatigue for a few days. * Do not drive or operate any motorized equipment for the next three days. * Limit stair usage (2 or 3 trips a day only) for the next three days. * Do not lift anything heavier than 10 pounds for the next three days. * Do not engage in vigorous exercise or any sports for the next five days. * You may shower the day after your procedure, but do not immerse the area for three days. Cleanse the site gently with soap and water. SPECIAL CARE INSTRUCTIONS: * You may replace the pressure dressing or band-aid the morning after the procedure. * After your procedure, it is normal to have a small bruise or small lump at the site. Examine your site daily for any change in the bruise or lump, redness, swelling, drainage or numbness. Notify your doctor if any change. BLEEDING: * If there is a small amount of bleeding at the site, lie down and apply firm pressure with a clean cloth for ten minutes. When the bleeding stops, lie quietly keeping the procedure limb straight for six hours. Notify your doctor as soon as possible. * If the bleeding does not stop after ten minutes or if there is a large amount of bleeding or spurting, call 911 immediately. Continue to lie down and hold firm pressure until help arrives. SKIN IRRITATION: * You may experience some redness and/or swelling in the area where radiation was administered. If any skin irritation occurs, please contact your family physician. FOLLOW UP VISIT: Keep any scheduled doctor appointments. Admission and Anticipated Discharge Date Admission Date: November 27, 2024 Subjective 53-year-old male seen and examined at the bedside. RCA and left circumflex intervention performed today via femoral approach. Patient tolerated procedure well. Denies chest pain or shortness of breath. Tolerating current medications. Denies orthopnea, PND, lower extremity edema. Offers no concerns/complaints. Review of Systems Review of Systems: All systems reviewed & are unremarkable except as noted in Subjective Physical Exam Constitutional: well nourished; no acute distress Respiratory: normal respiratory effort, lungs clear to auscultation Cardiovascular: RRR, no murmur, no edema Gastrointestinal (Abdomen): Inspection/Auscultation: normal bowel sounds; abdomen not distended Percussion/Palpation: abdomen soft; abdomen nontender, no guarding and abdomen not rigid Neurologic: CN's II-XI intact bilaterally and moves all extremities Results & Data Vital Signs (Past 12 Hours) Vital Signs Temp Pulse Pulse Resp BP Pulse Ox O2 Del Method 11/29/24 12:48 36.7 C 93 H 136/88 95 Room Air 11/29/24 11:49 83 149/94 H 95 Room Air 11/29/24 10:49 36.6 C 76 125/87 95 Room Air 11/29/24 10:19 36.4 C L 83 113/79 96 Room Air 11/29/24 09:45 72 11/29/24 09:45 36.3 C L 90 139/92 95 Room Air 11/29/24 09:24 88 17 133/88 97 Room Air 11/29/24 09:06 91 H 17 123/94 97 Room Air 11/29/24 07:35 100 H 18 153/112 H 95 Room Air 11/29/24 07:15 93 H 11/29/24 07:15 36.5 C 91 H 150/92 H 95 Room Air 11/29/24 03:40 36.7 C 72 18 151/93 H 95 Room Air Laboratory Results CBC 11/29/24 Range/Units 05:59 WBC 9.69 (4.8-10.8) K/ul RBC 5.22 (4.70-6.10) M/uL Hgb 16.4 (14.0-18.0) g/dl Hct 46.5 (42.0-52.0) % Plt Count 220 (130-400) K/uL Neut # (Auto) 7.17 H (1.40-6.50) K/uL Lymph # (Auto) 1.65 (1.20-3.40) K/uL [place] # (Auto) 0.67 H (0.11-0.59) K/uL Eos # (Auto) 0.14 (0.00-0.50) K/uL Baso # (Auto) 0.03 (0.00-0.20) K/uL Comprehensive Metabolic Panel 11/29/24 Range/Units 05:59 Sodium 140 (136-145) mmol/L Potassium 4.0 (3.5-5.1) mmol/L Chloride 105 (98-107) mmol/L Carbon Dioxide 27 (21-32) mmol/L BUN 13 (6-23) mg/dl Creatinine 1.01 (0.6-1.4) mg/dl Glucose 111 H (70-99(Fasting)) mg/dl Calcium 9.1 (8.6-10.3) mg/dl Intake and Output 11/28/24 11/29/24 11/29/24 22:59 06:59 14:59 Intake Total 480 / 2408.516 896.3 / 2408.516 720.00 / 720.00 Balance 480 / 2408.516 896.3 / 2408.516 720.00 / 720.00 Intake: IV 0 / 938.516 146.3 / 938.516 500.00 / 500.00 Heparin 46654 Unit/500 ml D5w 0 / 479.85 146.3 / 479.85 500.00 / 500.00 25,000 units In 500 ml @ 0 mls/ hr IV .Q0M ANKUR Rx#:[id number] Sodium Chloride 0.9% 1,000 ml @ 0 / 458.666 80 mls/hr IV .[id number] ANKUR Rx#: [id number] Oral 480 / 1470 750 / 1470 220 / 220 Other: Other Intake Source npo # Unmeasured Voids 3 1 Weight 72.8 kg Weight Measurement Method Built in [facility]
[2024-11-29 15:18] VITALS: BP 135/82; TEMP 97.9
[2024-11-29 15:28] VITALS: PULSE 109
--- NOTE | 2024-11-29 15:42 | Discharge Summary ---
Date of Service November 29, 2024 Admission HPI Per Admitting Provider 53M PMH gerd presents to the ED with cp. Patient states that this AM he was drinking coffee, and then developed central, sharp chest pain radiating to both arms. He also felt clammy. This pain waxed and waned for about an hour, but resolved before arrival to the ED. Patient states he has had only one episode similar to this in the past, about 6 months ago, which was also non exertional and resembled this episode, though less severe. Other than these two episodes has never had chest pain like this. Of note, patient states that he does get GERD symptoms which present as chest pain that can be sharp, but are usually not as severe as these symptoms above, and also do not radiate or cause clamminess. Patient has strong family history of heart disease in all of his aunts and uncles. Never smoker, no drug use. Admission Exam Per Admitting Provider Constitutional: WD/WN, vitals as above Respiratory: normal respiratory effort, lungs clear to auscultation Cardiovascular: RRR, no murmur, no edema Principal Diagnosis NSTEMI Discharge Exam Constitutional: Alert oriented x 3; not in distress. Respiratory: normal respiratory effort, lungs clear to auscultation, no wheeze, rales, rhonchi. Normal insp/exp effort, no accessory muscle use Cardiovascular: RRR, no murmur, no edema Vessels: no JVD or carotid bruit Chest: normal inspection of chest Abdomen: normal bowel sounds, soft, nontender, no hepatosplenomegaly Musculoskeletal: no cyanosis or clubbing, extremities motor strength 5/5 Skin: no rashes, warm and dry normal turgor Neurologic: PERRL, EOMI, accommodation nl, no face palsy, no dysarthria CN's II- XI intact bilaterally and moves all extremities Psychiatric: A+Ox3, euthymic affect Discharge Data Allergies Allergy/AdvReac Type Severity Reaction Status Date / Time No Known Allergies Allergy Unverified 11/27/24 13:21 Consultations 11/27/24 13:34 ED Decision to Admit Stat 11/27/24 14:30 Consult Cardiology Routine 11/28/24 10:42 Consult Cardiac Rehabilitation Routine Procedures Performed Operation Date: 11/29/24 08:00 Actual Procedures p Cineradiography w/Routine Exam - Zach Carrizales MD, PhD s Drug Eluting Stent SGl Vessel - Zach Carrizales MD, PhD Ordered Studies 11/28/24 08:12 CL Cath Imgs for PACS use only Stat 11/29/24 06:39 CL Cath Imgs for PACS use only Routine Hospital Course (1) NSTEMI (non-ST elevated myocardial infarction): Plan Patient presented to the hospital with chest pain EKG on admission shows normal sinus rhythm; no significant ST or T wave changes Echocardiogram showed EF of 55 to 60% with mild apical hypokinesis Patient treated with IV heparin; underwent cardiac cath on November 28, 2024. He was found to have 80% proximal LAD, 80% mid left circumflex and mid RCA. He underwent PCI of of proximal to mid LAD on November 28, 2024; with staged PCI of LCx and RCA a day later. Patient was discharged home on DAPT(aspirin and Brilinta), ARB and b-korin and statin. Patient to follow up with PCP next week. Please note the above document was generated using voice recognition software. It may contain grammatical, syntax or spelling errors. Any formal questions or concerns about the content, text or information contained within the body of this dictation should be directly addressed to the provider for clarification Total Time Total Time Spent Total Time Spent (In Minutes): 45 Total Time Includes: Examination of the Patient, Discharge Planning, Medication Reconciliation, Communication With Other Providers and Other Discharge Plan Discharge Items Patient Disposition: Home - Self-Care Reason For Visit: NSTEMI Discharge Diagnosis: NSTEMI status post PCI of LAD, left circumflex and RCA Activity: Resume your previous activity Non-emergency contact: Primary Care Provider Call non-emergency contact if: you have any medication questions and your symptoms worsen Follow-up/Referrals: Marco Harris M.D. [Outside Practitioners] - (Date & Time 12/06/2024 2:20 PM Provider: Marco Harris MD [facility] ) Diet: Regular Addtl Attending Provider Instructions: You were admitted to the hospital with a heart attack. You were evaluated by cardiology and underwent stent placement in 3 of your heart vessels. You are prescribed following medications; Take aspirin 81 mg once a day Take Brilinta 90 mg twice a day. Take losartan 25 mg once a day Take metoprolol 25 mg once a day Please take aspirin and Brilinta under interrupted for at least 1 year. Please follow-up with your primary care doctor Cardiology will also make an appointment for you to follow-up. 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 * Do not drive or operate any motorized equipment for the next three days. * Limit stair usage (2 or 3 trips a day only) for the next three days. * Do not lift anything heavier than 10 pounds for the next three days. * Do not engage in vigorous exercise or any sports for the next five days. * You may shower the day after your procedure, but do not immerse the area for three days. Cleanse the site gently with soap and water. SPECIAL CARE INSTRUCTIONS: * You may replace the pressure dressing or band-aid the morning after the procedure. * After your procedure, it is normal to have a small bruise or small lump at the site. Examine your site daily for any change in the bruise or lump, redness, swelling, drainage or numbness. Notify your doctor if any change. BLEEDING: * If there is a small amount of bleeding at the site, lie down and apply firm pressure with a clean cloth for ten minutes. When the bleeding stops, lie quietly keeping the procedure limb straight for six hours. Notify your doctor as soon as possible. * If the bleeding does not stop after ten minutes or if there is a large amount of bleeding or spurting, call 911 immediately. Continue to lie down and hold firm pressure until help arrives. SKIN IRRITATION: * You may experience some redness and/or swelling in the area where radiation was administered. If any skin irritation occurs, please contact your family physician. Pending Studies at Discharge: No Stand-Alone Forms: [employer], Work/School Release, Smoking Cessation Medications and DC Order Prescriptions: New atorvastatin 40 mg Tablet 40 mg PO QPM 90 Days Qty: 90 0RF pantoprazole 40 mg Tablet,Delayed Release (Dr/Ec) 40 mg PO DAILY 90 Days Qty: 90 0RF losartan 25 mg Tablet 25 mg PO QAM 90 Days Qty: 90 0RF metoprolol succinate 25 mg Tablet Extended Release 24 Hr 25 mg PO QAM 90 Days Qty: 90 0RF Brilinta 90 mg Tablet 90 mg PO BID 90 Days Qty: 180 0RF aspirin 81 mg Tablet,Delayed Release (Dr/Ec) 81 mg PO QAM 90 Days Qty: 90 0RF Discharge Orders: Discharge Order (Routine); Ordered 11/29/24 Ordered By: Jeromy Puga Admission Data Admit Date/Time: 11/27/24 14:30 Attending Provider: Jeromy Puga Admit Provider: Roopa Torrez Primary Care Provider: PCP,NO Other Providers: Win Ortega Kathleen M
--- NOTE | 2024-11-30 14:14 | Cardiac Catheterization ---
[facility] Data: Integrated Logistics Programs Director Cardiac Status Clinical evaluation leading to the procedure CAD Presenation: Non STEMI Anginal Classification: CCS IV Heart Failure: No Cardiogenic Shock within 24 Hours: No Cardiac Arrest within 24 Hours: No Coronary Anatomy Dominant: Co-Dominant (See diagnostic cardiac cath report Dr. Siddiqui) Diagnostic Physicians Name: Zach Carrizales MD, PhD Closure Device Percutaneous Entry Location: Femoral Closure Device: Angio-Seal Recommendations: Medical Therapy and/or Counseling and PCI without planned CABG PCI Indication: PCI for high risk Non-TRINIDAD Lesion Segment Name: Mid to distal circumflex/OM Culprit Artery: No Stenosis Prior to Rx (%): 80% Chronic Total Occlusion: No Pre-Procedure SEMAJ Flow: 3 Previously Treated Lesion: No Lesion Complexity: High/C Lesion Length (mm): 14 Thrombus Present: No Bifurcation Lesion: Yes Guidewire Across Lesion: Yes Lesion #2 Segment Name: Proximal to mid RCA Culprit Artery: No Stenosis Prior to Rx (%): 80% Chronic Total Occlusion: No Pre-Procedure SEMAJ Flow: 3 Previously Treated Lesion: No Lesion Complexity: Non-High/Non-C Lesion Length (mm): 15 Thrombus Present: No Bifurcation Lesion: No Guidewire Across Lesion: Yes Intraprocedure Events Significant Disection: No Perforation: No Cardiac Cath Procedure Full Procedure Date November 29, 2024 Pre-Procedure Diagnosis Pre-Procedure Diagnosis: Non STEMI AUC Score AUC Score: 07 Post-Procedure Diagnosis Post-Procedure Diagnosis: Successful PCI (LCx and RCA) Procedure(s) Performed Procedure(s) Performed: Drug Eluting Stent and Ultrasound Guided Vascular Access Coat Repair Inspector Zach Carrizales MD, PhD Water Filterer Helper(s) Farm Agent SOCIAL WORKER PALLIATIVE CARE Estimated Blood Loss Estimated Blood Loss: 10cc Medication(s) Medication(s): Diphenhydramine, Fentanyl, Heparin, Lidocaine 1%, Nicardipine, Nitroglycerin and Versed Summary of Findings Brief description: Patient was brought to the cardiac catheterization suite where he was shaved and prepped in a sterile fashion. Sedated using IV Versed, fentanyl, and diphenhydramine. Soft tissues of the right groin were anesthetized using 10 mL of 1% Xylocaine. Using the ultrasound for guidance (image saved), the right femoral artery was accessed and a 6 Tristanian femoral artery sheath was placed. Initial accessed with a 4 Tristanian micropuncture kit. All catheters were advanced and exchanged over a 0.035 J-tip wire. The ACT was checked initially and anticoagulation provided throughout the case intermittently using IV heparin as determined by the results of ACT. PCI of the left circumflex was undertaken using a 6 Tristanian EBU 3.5 guide catheter. A BMW universal guidewire was advanced and positioned distally in the circumflex. Lesion was predilated using a 2.5 x 12 mm trek balloon up to 4 latoya x 2. However, there was "watermelon seeding" and therefore the balloon was removed and exchanged for a 2.5 x 15 mm trek balloon. Predilatation using this balloon at 11 latoya was successful. Balloon was then removed. A 2.75 x 18 mm Bo drug-eluting stent was advanced and positioned across the lesion. Deployed at 14 latoya. Chargemaster Specialist angiography performed. Second inflation to 15 latoya. Stent balloon removed. The proximal portion of the stent was postdilated using a 3.0 x 8 mm NC Zaid balloon at 14 latoya. This balloon was removed. Chargemaster Specialist angiography was performed. The guidewire was then removed and final angiographic evaluation was performed. The guide catheter was removed over the J-wire. We turned our attention to RCA intervention. PCI of the RCA was undertaken using a 6 Tristanian JR4 guide catheter. The BMW was reinserted and positioned distally in the RCA. Predilatation of the lesion using a 2.5 x 12 mm trek balloon. First inflation to 10 latoya and a second 1 then at 14 latoya. Balloon was removed. A 2.75 x 15 mm Bo drug-eluting stent was then advanced and positioned across the lesion where it was deployed at 12 latoya. The balloon was removed and angiography performed. Distal stent edge without dissection but there was residual disease here which looked worse after the stent implantation. Therefore, a 2.5 x 8 mm Bo drug-eluting stent was advanced to cover this segment. It was overlapped proximally with the first stent. Deployed at 14 latoya . Postdilatation using the stent balloon at 18 latoya over the overlap segment and then a second inflation to 16 latoya for the distal part of the smaller stent. Stent balloon was removed. Guidewire was removed and final angiographic evaluation was performed. The guide catheter was then removed. Limited right femoral artery angiography was performed to evaluate for closure. Findings were favorable, therefore, the femoral artery sheath was exchanged for a 6 Tristanian Angio-Seal closure device. This was deployed in the recommended fashion. We obtained immediate hemostasis and the patient remained hem odynamically stable. He was then returned to the recovery area. This ended the case. PCI findings: 1. Initial 80+ percent lesion in the circumflex/OM was reduced to 0% residual stenosis post PCI SEMAJ-3 flow post PCI No evidence of dissection or perforation post PCI 2. Initial 70 to 80% RCA stenosis is reduced to 0% residual stenosis post PCI with 2 overlapped drug-eluting stents. SEMAJ-3 flow post PCI No evidence of dissection or perforation post PCI Summary: 1. Successful staged multivessel PCI including a single drug-eluting stent to the circumflex/OM as well as 2 overlapped drug-eluting stents to the RCA. No complications. 2. Guideline directed medical therapy for secondary prevention of coronary disease per primary starch crab 3. Dual antiplatelet therapy with aspirin 81 mg daily and Brilinta 90 mg p.o. twice daily 4. Highly recommend patient participate in cardiac rehab Hemodynamics Rest Ao:: 98/67 mmHg Final Ao: 97/72 mmHg LV: Not performed Recommendations Recommendations: Medical Therapy and/or Counseling and PCI without planned CABG Specimens Specimens: None Radiation Exposure (mGy) 1599 mGy, fluoroscopy time 12.3 minutes Contrast (mls) 140 cc Fluids (cc crystalloids) Fluids (cc crystalloids): 0cc Drains Drains: N/A Anesthesia Versed 3 mg IV, fentanyl 75 mcg IV, Benadryl 25 mg IV. Start 08 end 0858 Disposition Integrated Logistics Programs Director Holding/Recovery I attest to the content of the Intraoperative Record and any orders documented therein. Any exceptions are noted below. [facility] Card Cath Procedure Codes Moderate Sedation Procedure 1: Sedation/Anesthesia: 48920 Mod Sedation by the same physician;Init15 Min Child Age 5 & Up (Initial 15 minutes, start time 08) Procedure 2: Sedation/Anesthesia: 88885 Mod Sedation by the same physician; Ea [id number] Minutes (Additional 30 minutes, end time 0858) Stenting Procedure 1: Cardiovascular Stent Procedures: 97908 Perc transcatheter placement of intracoronary stent(s), with ang (LCx) Procedure 2: Cardiovascular Stent Procedures: 50667 Ea addl branch of a major coronary artery (RCA) PG Care Time/CCT Total # of Minutes Spent Total Time Spent with Patient: Total time spent is greater than 50% in coordination of care (as documented) at patient's floor/unit and/or counseling patient:
--- NOTE | 2024-11-30 16:31 | Electrocardiogram Report ---
Test Reason : Blood Pressure : */* mmHG Vent. Rate : 77 BPM Atrial Rate : 77 BPM P-R Int : 142 ms QRS Dur : 74 ms QT Int : 390 ms P-R-T Axes : 52 -5 36 degrees QTcB Int : 441 ms Normal sinus rhythm Cannot rule out Anterior infarct (cited on or before 27-Nov-2024) T wave abnormality, consider lateral ischemia Abnormal ECG When compared with ECG of 27-Nov-2024 12:15, (unconfirmed) Vent. rate has decreased by 52 bpm Questionable change in initial forces of Anterior leads T wave inversion now evident in Anterolateral leads Confirmed by Shakir White ([id number]) on 11/30/2024 4:30:39 PM Referred By: REFERRED SELF Confirmed By: Shakir White
--- NOTE | 2024-11-30 16:33 | Electrocardiogram Report ---
Test Reason : Blood Pressure : */* mmHG Vent. Rate : 85 BPM Atrial Rate : 85 BPM P-R Int : 134 ms QRS Dur : 84 ms QT Int : 390 ms P-R-T Axes : 55 -6 82 degrees QTcB Int : 464 ms Normal sinus rhythm T wave abnormality, consider anterolateral ischemia Prolonged QT Abnormal ECG When compared with ECG of 28-Nov-2024 10:50, (unconfirmed) No significant change Confirmed by Shakir White ([id number]) on 11/30/2024 4:33:03 PM Referred By: REFERRED SELF Confirmed By: Shakir White
--- NOTE | 2024-11-30 16:45 | Electrocardiogram Report ---
Test Reason : Blood Pressure : */* mmHG Vent. Rate : 129 BPM Atrial Rate : 129 BPM P-R Int : 128 ms QRS Dur : 72 ms QT Int : 300 ms P-R-T Axes : 55 -17 28 degrees QTcB Int : 439 ms Sinus tachycardia Minimal voltage criteria for LVH, may be normal variant ( R in aVL ) Anterior infarct , age undetermined Abnormal ECG No previous ECGs available Confirmed by Shakir White ([id number]) on 11/30/2024 4:44:48 PM Referred By: REFERRED SELF Confirmed By: Shakir White
== END 2024-11-29 18:27 | disposition home or self-care (01) | DRG 324 ==
LOC: ED 12:05 → SUATTDRO 14:30 → 4W 14:30